=== PATIENT | male | born 2000 | race Caucasian/White ===

== ENCOUNTER 2021-07-07 10:10 | Emergency (ER) | payer SELFPAY | END 2021-07-07 11:58 | disposition home or self-care (01) | LOC: ERS 10:10 | DX: B86 Scabies (principal); F17.210 Nicotine dependence, cigarettes, uncomplicated | CPT/HCPCS: 99282 ==

== ENCOUNTER 2021-11-03 08:14 | Emergency (ER) | payer SELFPAY ==
[2021-11-03] MEDS ORDERED: Ketorolac Tromethamine 30 MG/ML VIAL ONE (09:20)
== END 2021-11-03 09:39 | disposition home or self-care (01) ==
LOC: ERS 08:14
DX: K02.9 Dental caries, unspecified (principal); K03.81 Cracked tooth; F17.210 Nicotine dependence, cigarettes, uncomplicated
CPT/HCPCS: 96372; 99282; J1885

== ENCOUNTER 2024-10-29 16:21 | Emergency (ER) | payer SELFPAY | END 2024-10-29 20:40 | LOC: ERS 16:21 | DX: Z53.21 Procedure and treatment not carried out due to patient leaving prior to being seen by health care provider (principal) ==